=== PATIENT | female | born 1965 | race African-American/Black ===

== ENCOUNTER 2019-04-05 14:33 | Inpatient (IN) | payer MEDICAID, SELFPAY ==
[~2019-04-05] VITALS: Ht 170.2 cm; Wt 40.7 kg
[2019-04-05] MEDS ORDERED: FLEET ENEMA PR PRN (16:00)
[2019-04-05] MEDS ORDERED: MORPHINE 10MG/0.5ML ORAL CONCENTRATE SOLUTION U/D SL PRN (16:00)
[2019-04-05] MEDS ORDERED: MOM 30ML SUSPENSION UDC PO PRN (16:00)
[2019-04-05] MEDS ORDERED: ACETAMINOPHEN TAB 650MG DOSE (2X325MG) PO PRN ×2 (16:00)
[2019-04-05] MEDS ORDERED: HYOSCYAMINE SULFATE 0.125 MG SUBL TABLET PO PRN (16:00)
[2019-04-05] MEDS ORDERED: MAALOX 30 ML SUSP *UDC PO PRN (16:00)
[2019-04-05] MEDS ORDERED: SCOPOLAMINE 1MG TRANSDERMAL PATCH TOP PRN (16:00)
[2019-04-05] MEDS ORDERED: ATROPINE SULFATE 1% OP SOLN 2 ML BTL SL PRN (16:00)
[2019-04-05] MEDS ORDERED: BISACODYL 10 MG SUPP PR PRN (16:00)
[2019-04-05] MEDS ORDERED: MORPHINE 4 MG/ML 1ML VIAL/SYRINGE (J2270) IV PRN (16:00)
[2019-04-05] MEDS: LORazepam 1 MG TAB PO PRN (17:28)
[2019-04-05] MEDS ORDERED: NALBUPHINE HCL 10 MG/ML AMP (J2300) IV PRN (18:00)
[2019-04-05] MEDS ORDERED: EPIDURAL/PCA KEYS XX PRN (18:00)
[2019-04-05] MEDS ORDERED: diphenhydrAMINE INJ 50MG/ML VIAL (J1200) IV PRN (18:00)
[2019-04-05] MEDS: NS 1,000 ML IV SCH (18:21)
[2019-04-05] MEDS: MORPHINE 1MG/ML IN 0.9% NACL 100ML IV BAG IV PRN (18:22)
[2019-04-05] MEDS: LACTULOSE 20 GM/30 ML SYRUP UD PO SCH (21:00)
[2019-04-06] MEDS: ONDANSETRON 4 MG ORAL DISINTEGRATING TAB (Q0162 PER 1MG) PO PRN ×3 (05:41→21:36)
[2019-04-06] MEDS: NICOTINE 7 MG/24 HR TRANSDERMAL TD SCH (09:00)
[2019-04-06] MEDS: LACTULOSE 20 GM/30 ML SYRUP UD PO SCH ×2 (09:07→21:00)
--- NOTE | 2019-04-06 09:57 | HPEPDOC ---
General Date of Admission Apr 05, 2019 at 15:40 Date of Service: Apr 06, 2019 Attending Physician: CATHY COLE DO Chief Complaint The patient is a 53-year-old female admitted with a reason for visit of Pain Control/Pancreatic Cancer. Source: Patient Exam Limitations: Mild cognitive slowing Timing/Duration: Day(s), Getting worse Severity: Severe Associated Symptoms: Loss of appetite, Nausea, Other (abdomen pain) History of Present Illness 53 yo black female with known pancreatic cancer stage III (diagnosed in [place] 10/2018) and failed chemotherapy, direct admit for intractible pain. Patient was on hospice in [place] and moved to [place] yesterday to be closer to her sons at [facility]. She states she is on fentyl patch, roxinal and lorazepam but is unsure of dosing and sons tell me the hospice nurses in [place] told her to limit her dose. Dwayne, hospice nurse with [facility], present in room Patient has mild cognitive impairment and slowing of speech - states she is in pain and feels unable to concentrate/spacey. Abdomen pain is generalized, constant, dull achy and no relief with 1mg IV morphine. Pain radiates thru her back. States similar pain with EtOH pancreatitis in 12/2018 and has not had any EtOH use since 12/2018. Allergies Coded Allergies: latex (Verified Allergy, Intermediate, Itching, Hives, 04/05/19) pt reported erythromycin base (Verified Allergy, Unknown, 04/05/19) Past Medical History Medical History HTN EtOH pancreatitis hepatitic encephalopathy Pancreatic cancer stage III Surgical History none Family History Significant Family History: Cancer, Other father alive with prostate cancer, mother alive with dementia Social History * Smoker: current smoker (/2 ppd) Alcohol: Denies Drugs: denies A-FIB/CHADSVASC A-FIB History Current/History of A-Fib/PAF?: No Review of Systems Other systems 10 systems reviewed and negative except as per HPI, in addition patient states MARIO, Sore throat,sinus drainage, SOB, no CP, + dizziness, constipation, abdomen pain, back pain Physical Examination General Exam: Positive: Alert, Cooperative, Moderate Distress, Other (cachetic frail, older than stated age) Eye Exam: Positive: PERRLA, EOMI ENT Exam: Positive: Atraumatic, Mucous membr. moist/pink, Pharynx Normal Neck Exam: Positive: Supple, Lymphadenopathy Chest Exam: Positive: Clear to auscultation, Normal air movement; Negative: Rales, Rhonchi, Wheezing, Diminished Heart Exam: Positive: Tachycardic, Regular Rhythm Abdomen Exam: Positive: BS Hypoactive, Tenderness, Hepatospenomegaly, Mass Extremity Exam: Positive: Normal pulses; Negative: Clubbing, Cyanosis, Edema Skin Exam: Positive: Nl turgor and temperature Neuro Exam: Positive: Normal Speech Psych Exam: Positive: Mental status NL, Oriented x 3 Vital Signs pulse 110, resp 18, afebrile Laboratory Data Labs 24H no labs performed - hospice/comfort care Assessment/Plan 1) pancreatic cancer stage III 2) intractible pain from cancer 3) history of hepatic encephalopathy PLAN: Hospice consulted. comfort care. Morphine ASSOCIATE PROFESSOR OF GEOGRAPHY to determine opioid tolerance and levels needed for pain control over next 24 hours then change to oral dosing. prn ativan. lactulose, d/c fentyl patch Plan / VTE VTE Prophylaxis Ordered?: No Plan Advanced Directives: Do Not Resuscitate (DNR), Do Not Intubate (DNI) (patient does not have HCP; MOLST form reviewed wtih patient and filled out), Allow Natural (AND), Comfort Care Measures CATHY COLE DO Apr 05, 2019 16:01
[2019-04-06] MEDS: NS 1,000 ML IV SCH ×2 (18:00→20:24)
--- NOTE | 2019-04-06 21:54 | IPNPDOC ---
Text Note Date of Service The patient was seen on 04/06/19. NOTE S: patient states pain under better control with morphine MANAGER TESTING. tolerable but not pain free. Good appetite, eating 100% meal. O: no vitals or physical performed A/P: Intractible pain due to end stage pancreatic cancer stage III Currently has used 64mg IV morphine in 24 hours - this converts to approx 190mg oral morphine. Will continue IV morphine MANAGER TESTING tonight and change to Roxanol suspension tomorrow (approx 30mg q 4h prn) Hospice nursing following. Anticipate discharge once patient pain is controlled for 24 hours on oral regimen VS,Fishbone, I+O VS, Fishbone, I+O I&O- Last 24 Hours up to 6 AM 04/06/19 06:00 Intake Total 465 ml Output Total 0 ml Balance 465 ml CATHY COLE DO Apr 06, 2019 21:54
[2019-04-07] MEDS: MORPHINE 1MG/ML IN 0.9% NACL 100ML IV BAG IV PRN (06:30)
[2019-04-07] MEDS: NICOTINE 7 MG/24 HR TRANSDERMAL TD SCH (09:00)
[2019-04-07] MEDS: LACTULOSE 20 GM/30 ML SYRUP UD PO SCH ×2 (09:00→19:57)
[2019-04-07] MEDS: LORazepam 1 MG TAB PO PRN ×5 (09:10→19:57)
[2019-04-07] MEDS ORDERED: MORPHINE 10MG/0.5ML ORAL CONCENTRATE SOLUTION U/D SL PRN (09:15)
--- NOTE | 2019-04-07 14:57 | IPNPDOC ---
Text Note Date of Service The patient was seen on 04/07/19. NOTE S: patient changed from IV morphine to po roxinol. states pain is minimal and tolerable. eating large lunch. states she worries about nausea with pain medications but presently no nausea. States ativan "working better" for anxiety and pain. She is having some visual hallucinations (mouse on wall, TV off but sees people on TV show). O: General: pleasant, NAD HEENT: brief nystgmus HRRR LCTA A/P: Hospice for pancreatic cancer stage III (poor prognosis) with intractible pain (improved) Will change morphine /roxinol to 15 mg q1 h ,continue with prn ativan. will be ready for discharge home to hospice tuesday or tuesday , when hospice can accept patient and have home ready. Currently on no IV medicatoins. VS,Fishbone, I+O VS, Fishbone, I+O Vital Signs Date Time Temp Pulse Resp B/P (MAP) Pulse Ox O2 Delivery O2 Flow Rate FiO2 04/07/19 11:11 18 I&O- Last 24 Hours up to 6 AM 04/07/19 05:59 Intake Total 890 ml Output Total 0 ml Balance 890 ml CATHY COLE DO Apr 07, 2019 14:57
[2019-04-07] MEDS: ONDANSETRON 4 MG ORAL DISINTEGRATING TAB (Q0162 PER 1MG) PO PRN (15:06)
[2019-04-07] MEDS: MORPHINE 10MG/0.5ML ORAL CONCENTRATE SOLUTION U/D SL PRN ×3 (15:21→19:58)
[2019-04-08] MEDS: MORPHINE 10MG/0.5ML ORAL CONCENTRATE SOLUTION U/D SL PRN ×5 (03:12→17:47)
[2019-04-08] MEDS: LORazepam 1 MG TAB PO PRN ×5 (03:15→17:49)
[2019-04-08] MEDS: LACTULOSE 20 GM/30 ML SYRUP UD PO SCH ×2 (09:00→22:41)
[2019-04-08] MEDS: NICOTINE 7 MG/24 HR TRANSDERMAL TD SCH (09:00)
--- NOTE | 2019-04-08 16:53 | IPNPDOC ---
Text Note Date of Service The patient was seen on 04/08/19. NOTE S: patient better today. not requiring IV meds. she is not happy lighters have been taken away. She keeps unlit cigarette in her mouth which seems to help satisfy her nicotene craving despite patch. O: general: thin frail cachetic no exam per patient request A/P: Hospice for pancreatic cancer stage III (poor prognosis) with intractible pain (improved) continue roxinol to 15 mg q1 h prn ,continue with prn ativan. Is pain controlled and medically ready for discharge home to hospice , when hospice can accept patient and have home meds/equipment ready. Currently on no IV medicatoins. VS,Fishbone, I+O VS, Fishbone, I+O Vital Signs Date Time Temp Pulse Resp B/P (MAP) Pulse Ox O2 Delivery O2 Flow Rate FiO2 04/08/19 09:28 16 I&O- Last 24 Hours up to 6 AM 04/08/19 06:00 Intake Total 1150 ml Output Total 0 ml Balance 1150 ml CATHY COLE DO Apr 08, 2019 16:53
[2019-04-09] MEDS: MORPHINE 10MG/0.5ML ORAL CONCENTRATE SOLUTION U/D SL PRN ×4 (03:47→14:20)
[2019-04-09] MEDS ORDERED: LACTULOSE 20 GM/30 ML SYRUP UD PO PRN (06:00)
[2019-04-09] MEDS: NICOTINE 7 MG/24 HR TRANSDERMAL TD SCH (08:52)
[2019-04-09] MEDS ORDERED: ATIV1TAB7 PO (12:01)
[2019-04-09] MEDS ORDERED: ATRO1OPD SL (12:01)
[2019-04-09] MEDS ORDERED: LACT10SO3 PO (12:01)
[2019-04-09] MEDS ORDERED: ONDA4TAB6 PO (12:01)
[2019-04-09] MEDS ORDERED: MORP20SOL PO (12:01)
[2019-04-09] MEDS ORDERED: SCOP1PAT2 TOP (12:01)
[2019-04-09] MEDS ORDERED: ACET1TAB55 PO (12:01)
--- NOTE | 2019-04-09 12:15 | DS.PDOC ---
Discharge Summary General Date of Admission Apr 05, 2019 at 15:40 Date of Discharge 04/09/19 Primary Care Physician: CATHY COLE DO Discharge Summary PROCEDURES PERFORMED DURING STAY: none ADMITTING DIAGNOSES: 1. intractible pain from pancreatitis stage III DISCHARGE DIAGNOSES: 1. intractible pain from pancreatitis stage III 2. hepatic encephalopathy COMPLICATIONS/CHIEF COMPLAINT: Pain Control/Pancreatic Cancer. HISTORY OF PRESENT ILLNESS: 53 yo black female from [place] diagnosed with pancreatic cancer stage III in October 2018, failed chemotherapy treatment in dec 2018 and has moved to [place] to be closer with sons. Patient was on hospice in [place] and presented with intractible pain. [facility] consulted and admitted to their services. HOSPITAL COURSE: Patient admitted to hospital for pain control. She was placed on IV morphine HATCHERY WORKER for 36 hours with adequate control of pain and changed to orals. Her pain remained controlled for next 48 hours. She was treated with lactulose for hepatic encephalopathy (suspected), with improvement of mentation, however, had copious diarrhea on day of discharge, so medication change to PRN dosing. She is being discharged home with hospice in stable condition. DISCHARGE MEDICATIONS: Please see below. ALLERGIES: Please see below. PHYSICAL EXAMINATION ON DISCHARGE: VITAL SIGNS: Please see below. HRRR LCTA Abdomen: mass present, tender with palpation LABORATORY DATA: none PROGNOSIS: poor ACTIVITY:as tolerated DIET: as tolerated DISCHARGE PLAN: d/c home with hospice DISCHARGE INSTRUCTIONS: follow up with hospice DISCHARGE CONDITION: stable TIME SPENT ON DISCHARGE:20 minutes. Vital Signs/I&Os Vital Signs Date Time Temp Pulse Resp B/P (MAP) Pulse Ox O2 Delivery O2 Flow Rate FiO2 04/09/19 04:17 16 04/09/19 03:47 100 I&O- Last 24 Hours up to 6 AM 04/09/19 06:00 Intake Total 980 ml Balance 980 ml Discharge Medications Scheduled PRN Acetaminophen (Acetaminophen) 325 Mg Tablet, 650 MG PO Q4HP PRN for MILD PAIN or TEMP > 101 Atropine Sulfate (Atropine Sulfate) 1% 2ML Drops, 1 DROP SL Q2HP PRN for TERMINAL SECRETIONS Lactulose (Lactulose) 10 Gm/15 Ml Solution, 15 ML PO BID PRN for CONSTIPATION constipation or hepatic encephalopathy Lorazepam (Ativan) 1 Mg Tablet, 1 MG PO Q2HP PRN for ANXIETY Morphine Sulfate (Morphine Sulfate Concentrate) 100 Mg/5 Ml Solution, 15 MG PO Q1H PRN for PAIN OR DYSPNEA Ondansetron (Ondansetron Odt) 4 Mg Tab.rapdis, 4 MG PO Q6HP PRN for NAUSEA OR VOMITING Scopolamine (Transderm-Scop) 1 Each Patch.td.3, 1 MG TOP Q3DP PRN for EXCESSIVE SECRETIONS Allergies Coded Allergies: latex (Verified Allergy, Intermediate, Itching, Hives, 04/05/19) pt reported erythromycin base (Verified Allergy, Unknown, 04/05/19) CATHY COLE DO Apr 09, 2019 12:15
== END 2019-04-09 14:23 | disposition hospice, home (50) | DRG 862 ==
LOC: M MSPAV 15:40
PROVIDERS: ADMIT Family Medicine; ATTEND Family Medicine
DX: Z51.5 Encounter for palliative care (principal); C25.9 Malignant neoplasm of pancreas, unspecified; K72.90 Hepatic failure, unspecified without coma; G89.3 Neoplasm related pain (acute) (chronic); Z88.1 Allergy status to other antibiotic agents; Z79.899 Other long term (current) drug therapy; Z91.040 Latex allergy status